=== PATIENT | male | born 1970 | race Caucasian/White ===

== ENCOUNTER 2018-03-04 18:32 | Emergency (ER) | payer BC, MEDICAID ==
[~2018-03-04] VITALS: Ht 162.6 cm; Wt 91.2 kg
[2018-03-04 18:45] VITALS: BP 138/83
== END 2018-03-04 19:17 | disposition home or self-care (01) ==
LOC: ER 18:42
DX: L30.9 Dermatitis, unspecified (principal); E11.9 Type 2 diabetes mellitus without complications; I10 Essential (primary) hypertension; Z87.891 Personal history of nicotine dependence
CPT/HCPCS: 99283; A4606; Z7610